=== PATIENT | female | born 1965 | race Caucasian/White ===

== ENCOUNTER 2016-10-25 13:20 | Outpatient (CLI) | payer BC | END 2016-10-25 13:21 | disposition home or self-care (01) | DX: Z78.0 Asymptomatic menopausal state (principal) ==

== ENCOUNTER 2016-12-15 10:36 | Outpatient (CLI) | payer BC | END 2016-12-15 10:37 | disposition home or self-care (01) | DX: M43.16 Spondylolisthesis, lumbar region (principal); M51.36 Other intervertebral disc degeneration, lumbar region; M51.37 Other intervertebral disc degeneration, lumbosacral region; M89.8X8 Other specified disorders of bone, other site ==